=== PATIENT | female | born 1970 | race Caucasian/White ===

== ENCOUNTER → 2022-04-03 | Outpatient (CLI) | payer BC, SELFPAY ==
--- NOTE | 2022-04-03 13:04 | US_ITS ---
STUDY: ULTRASOUND OF THE FEMALE PELVIS - COMPLETE REASON FOR EXAM: Female, 51 years old. Encounter for excessive bleeding LMP: 03/17/2022. TECHNIQUE: Transabdominal and Transvaginal TECHNICAL QUALITY: Adequate. COMPARISON: None. FINDINGS: The uterus is anteverted and is in a midline position. The uterus measures 11.2 cm x 7.3 cm x 5.4 cm. There is a Nabothian cyst of the cervix. The endometrium is thickened and measures 15.3 mm in thickness, and is hyperechoic. There is no demonstrated endometrial mass. There is no demonstrated myometrial mass. I.U.D. - The patient does not have an I.U.D. The right ovary is visualized. The right ovary measures 2.9 cm x 3.2 cm x 2.3 cm. There is no right ovarian cyst or ovarian mass. There is no visualized right adnexal mass or complex lesion. There is normal arterial and normal venous vascularity. The left ovary is visualized. The left ovary measures 3.8 cm x 4 cm x 4.6 cm. There is a 3.1 cm x 2.6 x centimeters 3.1 cm left ovarian cyst. There is no visualized left adnexal mass or complex lesion. There is normal arterial and normal venous vascularity. There is no fluid in the cul-de-sac. The pre void volume of the bladder was 219 ml. Polycystic ovary disease: No. US/Pelvic (Non ) IMPRESSION: Thickened endometrium measuring 15.3 mm. There is a 3.17 x 2.6 x 3.1 cm left ovarian cyst. Electronically Signed: Manuel Villegas MD at 15:04 EST ,
== END | disposition home or self-care (01) ==
LOC: US 13:03
PROVIDERS: PCP Internal Medicine; Referring Provider Registered Nurse; Visit Provider Registered Nurse
DX: N93.9 Abnormal uterine and vaginal bleeding, unspecified (principal)
CPT/HCPCS: 76830; 76856

== ENCOUNTER → 2022-04-24 | Outpatient (CLI) | payer BC, SELFPAY ==
--- NOTE | 2022-04-24 15:30 | EMB_PTH ---
PATIENT: NICKI LAGUNA LOC: [facility] U#:[id number] AGE/SX: 51/F ROOM: RE04/24/[address]: Dr. Lili Rodríguez DO : 1970 BED: DIS: 04/24/2022 SPEC #: [id number] RECD: 04/24/22 16:06 STATUS: QUYEN RUBYIdalia #: [id number] RYAN: 04/24/22 15:[address]: Lili Rodríguez DEPT: SURGICAL PATHOLOGY RECD BY: Haily Hutchinson ENTERED: 04/25/22 07:39 SP TYPE: ENDOM BX/C ALFONSO DR: Adilene Hudson MD Tissues: Endometrium, NOS Procedures: Surgery Specimen Level IV HEADER OPERATION: Endometrial biopsy PRE-OP DIAGNOSIS: Menorrhagia TISSUE SUBMITTED: Endometrial lining MICROSCOPIC DIAGNOSIS Endometrial biopsy: Proliferative endometrium. REBECCA:mando 04/28/2022 MICROSCOPIC DESCRIPTION Slides are reviewed. GROSS DESCRIPTION Received is one container labeled with the patient's name and not further designated. The specimen consists of multiple irregular fragments of telles-pink soft tissue that in aggregate measure 2.5 x 2.0 x 0.2 cm. The specimen is totally submitted in one cassette. / REBECCA:mando 04/25/2022 TC:4 CPT: 30975
== END | disposition home or self-care (01) ==
LOC: LABSPEC 16:17
PROVIDERS: PCP Internal Medicine; Referring Provider Obstetrics & Gynecology; Visit Provider Obstetrics & Gynecology
DX: N92.0 Excessive and frequent menstruation with regular cycle (principal)
CPT/HCPCS: 88305

== ENCOUNTER 2022-07-08 05:28 | Day surgery (SDC) | payer BC, SELFPAY ==
[2022-07-08] VITALS (11 sets, daily range): BP systolic 118–135; BP diastolic 64–83; PULSE 65–84; RESP 14–18; TEMP 36.7–37.7; O2SAT 95–100; BMI 26.4
--- NOTE | 2022-07-08 | HYST_PTH ---
PATIENT: NICKI LAGUNA LOC: [facility] [place] U#:[id number] AGE/SX: 51/F ROOM: RE07/08/[address]: Dr. Lili Rodríguez DO : 1970 BED: DIS: 07/08/2022 SPEC #: [id number] RECD: 07/08/22 11:58 STATUS: QUYEN DIAZ #: [id number] RYAN: 07/08/22 00:[address]: Lili Rodríguez DEPT: SURGICAL PATHOLOGY RECD BY: Ramon Brewster ENTERED: 07/08/22 11:58 SP TYPE: HYSTERECT OTHR DR: Adilene Hudson MD Tissues: Uterus, NOS Procedures: Surgery Specimen Level V HEADER OPERATION: ERAS, lap robotic hysterectomy PRE-OP DIAGNOSIS: Menorrhagia TISSUE SUBMITTED: Uterus and fallopian tubes MICROSCOPIC DIAGNOSIS Uterus, hysterectomy: Cervix ? mild chronic inflammation. Endocervical polyp ? benign endocervical polyp with squamous metaplasia, focal ulceration and nabothian cysts, inflamed. Endometrium ? transition endometrium. Myometrium ? adenomyosis. Right and left fallopian tubes ? benign paratubal cysts. AM:mando 07/09/2022 MICROSCOPIC DESCRIPTION Slides are reviewed. GROSS DESCRIPTION Received in fixative is one container labeled with the patient's name and designated uterus. The specimen consists of a uterus with attached cervix measuring 11.5 x 9.0 x 6.0 cm and weighing 297 gm. The ectocervix appears to contain a polyp in the orifice. Also present free in the container are two fallopian tubes with fimbrial ends with average lengths of 5.0 cm and average diameters of 1.0 cm. The endocervical canal measures 3.6 cm in length and contains a glistening, pink polyp measuring 3.0 x 2.0 x 0.8 cm. The triangular endometrial cavity measures 5.0 x 4.5 cm. The velvety, reddish-telles endometrium measures up to 0.3 cm in thickness. The myometrium measures 2.5 cm in average thickness and is free of mass lesions. Compliance Clerk sections are submitted as follows: 1 - anterior cervix, 2 - posterior cervix, 4 & 5 - anterior endometrium/myometrial, 6 & 7 - posterior endometrium/myometrial, 8 - one fallopian tube, 9 - the other fallopian tube. / AM:mando 07/09/2022 TC:5 CPT: 83273
[2022-07-08] MEDS: Lactated Ringers 1,000 ML 40 ML IV ×2 (06:18→08:21)
[2022-07-08] MEDS: Celecoxib 200 MG Capsule 400 MG PO (06:25)
[2022-07-08] MEDS: Phenazopyridine 95 MG Tablet 190 MG PO (06:25)
[2022-07-08] MEDS: Acetaminophen 500 MG Tablet 1000 MG PO (06:25)
[2022-07-08] MEDS: Gabapentin 600 MG Tablet PO (06:25)
[2022-07-08] MEDS: dexAMETHasone 4 MG/ML Vial 8 MG IV (06:26)
[2022-07-08] MEDS: Magnesium 1 GM over 15 mins IV (06:29)
[2022-07-08 06:31] LABS: Internal QC Validated? YES +Cl - CLEAR BKGD; Pregnancy, Urine Negative Negative
[2022-07-08 06:40] LABS: Bedside Glucose 207 mg/dL (74-106)
[2022-07-08] MEDS: Insulin Lispro 100 UNIT/ML INSULN.PEN SC (07:06)
--- NOTE | 2022-07-08 07:25 | PCM.HP.BLA ---
History and Physical Date of Admission: 07/08/22 Vital Signs ? 06/19/2307:30 06/19/2307:30 Height 5 ft 6 in 5 ft 6 in Weight: 165 lb ? BMI 26.6 ? BP 143/87 H ? Intake Visit Reasons:?surgery consult Network Project Manager Required: No Is patient in pain?: No Allergies No Known Allergies Allergy (Verified 06/18/22 08:30) Medications cholecalciferol (vitamin D3) 50 mcg (2,000 unit) capsule 50 mcg PO DAILY 03/17/22 [History Confirmed 06/18/22] ergocalciferol (vitamin D2) 50,000 unit tablet 50,000 unit PO 03/17/22 [History Confirmed 06/18/22] Post menopausal: No Patient : No : No PFSH Family History? Father Diabetes Thyroid disorderMother HypertensionDaughter Thyroid cancerGrandmother Lung cancerGrandmother DiabetesGrandfather Esophageal cancer Diabetes Social History? adopted:? No household members:? spouse and children current occupational status:? employed current occupation:? [employer] current occupational exposures/hazards:? No pets and animals:? Yes (goats) pets and animals: cat(s) and fish sexually active:? Yes Smoking Status:? Never smoker second hand exposure:? No alcohol intake:? current alcohol intake frequency: holidays/special occasions only substance use type:? does not use caffeine:? Yes Type: carbonated beverages what type of physical activity do you participate in:? none seatbelt use:? always do you feel safe at home:? Yes additional social history:? spouse, Cash [facility] surgery consult Details: VIKI LAGUNA is a 51 year old , who presents for discussion about heavy menses. She states that her menses started getting heavy a year or more ago and then dec through January she had a period every day. Ultrasound was performed showing an 11-12 cm uterus and normal ovaries. The lining was found to be 16mm.? There are some signs of adenomyosis as well within the endometrium. Her EMB was benign. She is not interested in hormonal therapy due to fear of side effects. She wants to keep her ovaries in tact. History Past Pregnancies Del. Date Name GA/Weeks Outcome Route Bth Weight Infant Gen Labor Lgth Anesthesia Del Locatn Provider FOB Unknown Sybil ? Unknown Jaziel ? ROS Const ROS Unobtainable: All systems reviewed & are unremarkable except as noted in H Resp Resp: Reports system reviewed and no additional complaints, except as documented; Denies cough GI GI: Reports as per HPI Psych Psych: Reports system reviewed and no additional complaints, except as documented Exam Const General: cooperative, healthy appearing, comfortable and no acute distress Resp Effort & Inspection: normal respiratory effort Skin General: no rashes or lesions noted Psych Appearance: grossly normal Speech and Movement: speech and movement normal Coding Level of Care Code Off vis,est,level 4 Diagnoses Menorrhagia? N92.0 Hypertension? 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 I have discussed with the patient the risks, benefits, and alternatives of the procedure which include but are not limited to risks of anesthesia, bleeding, infection, possible damage to bowel, bladder, or surrounding vasculature which could lead to additional surgery to evaluate any complications.? Patient agrees to procedure and wishes to proceed.? ACOG/uptodate references given for additional information regarding procedure.? plan for total robotic hyst, bs and cysto
[2022-07-08] MEDS: Cefazolin 2 GM in 0.9% Normal Saline 100 ML IV (07:30)
[2022-07-08] MEDS: Ondansetron 4 MG/2 ML Vial IV (10:04)
[2022-07-08] MEDS: Bupivacaine 0.25% 30 ML Vial (10:14)
--- NOTE | 2022-07-08 10:22 | OP.PCM_ITS ---
Problems Associated Problem List Diagnoses (1) Menorrhagia: (2) Endometriosis determined by laparoscopy: Operative Report Date of Procedure: 07/08/22 Preoperative diagnosis: Pelvic pain and menorrhagia, enlarged uterus Postoperative diagnosis: Pelvic pain menorrhagia enlarged uterus and moderate to severe endometriosis Procedure: Total robotic hysterectomy, bilateral salpingectomy,cystoscopy, and use of sigmoidoscope Surgeon: Dr. Lili Rodríguez DO Intraoperative consultation with Dr. Sam Bell MD Aircraft Pneudraulics Repairer: DENILSON Tejada Anesthesia: General endotracheal intubation Estimated blood loss: 100cc Urine output:300cc Drains: None Implanted material: None Complications: None Findings: 14 cm size uterus, normal-appearing fallopian tubes however were adherent to the posterior uterus. The ovaries were also adherent to the sigmoid colon and the posterior uterus. On further exploration of the abdominal cavity the uterus was found to be adherent to the descending colon. Cystoscopy showed no evidence of leaking at approximately 250 cc of normal saline, positive ureteral orifices and jet flow are seen and no suture material was appreciated in the bladder. A sigmoidoscope was inserted into the rectum and air was pushed through the rectum and colon and no intra-abdominal air bubbles were noted. Specimens removed: Uterus and cervix, Bilateral tubes Reason for surgery: This is a 51-year-old G 2, P 2 who presented to my office with history of pelvic pain and heavy periods. She was found to have an enlarged uterus on ultrasound and declined conservative therapy. The planned procedure is for a robotic hysterectomy the risks benefits and alternatives were discussed with the patient the patient had a clear understanding of the procedure and a consent form was signed. Procedure: The patient was placed in the dorsal low lithotomy position and prepped and draped in the normal sterile fashion both abdominally and in the perineum. Her legs were placed in stirrups a Meek catheter was inserted into the urethra without difficulty. A weighted speculum was placed in the vagina and a single- tooth tenaculum was used to grasp the anterior lip of the cervix. A, Advincula uterine manipulator was inserted through the cervix without complication. It was then tied into place at the 2 and 10:00 locations on the cervix. Gloves were changed and attention was turned towards the abdomen. Approximately 23 cm above the pubic symphysis in the midline, and after Marcaine injection, a 8 mm incision was made. An 8 mm trocar was inserted through the laparoscope, then inserted into the abdomen under direct visualization using the laparoscope. Good abdominal placement was noted and no complications were appreciated. An air seal device was utilized to create pneumoperitoneum. At 12 cm lateral to the midline on the left and right sides 8 mm accessory ports were placed. Next a left upper quadrant 8 mm assistant financial accountant port site was placed. The patient was placed in steep Trendelenburg position. The robot was docked. The hysterectomy was initiated first by carefully dissecting off fine adhesions on the posterior uterus that were adherent to the descending colon this was done with Brusett dissection and very gentle blunt dissection until general surgery was called to the room for further dissection. Dr. Bell entered and carefully pushed more adhesions down bluntly without cutting or cauterizing any tissue. The fallopian tubes and round ligaments on each side using the vessel sealer device. The broad ligament was then and taken down using the vessel sealer device. Next the bladder flap was taken down without complication. This was done using monopolar cautery to the level of the cervical vaginal junction. After the bladder flap was created, uterine vessels were then isolated and cauterized using the vessel sealer device and EndoShears. At this point the uterine vessels were taken down further starting from the ascending branch, dissecting along the edges of the cervix to the level of the cervical vaginal junction with hemostasis appreciated. The cervical vaginal junction was then using monopolar cautery in a circumferential pattern across the superior aspect of the cervix. The specimen was delivered through the vagina and sent to pathology. The remaining vaginal cuff was then closed using OV lock suture. This was performed in a running technique. Excellent hemostasis was obtained and good closure was noted. Irrigation was then performed. All operative sites were noted to be hemostatic. A cystoscopy was performed with a 70 degree cystoscope through the urethra into the bladder without complication. The bladder was instilled with approximately 250 cc of normal saline. Intraoperative images were made. Ureteral orifices and jets were identified. No suture material was appreciated in the bladder. The bladder was then drained and cystoscope was removed. A rigid sigmoidoscope was inserted into the rectum and air was pumped into the rectum and descending colon. This was visible on laparoscopy as my assistant financial accountant push the air in. Fluid was used to fill the cul-de-sac first and the descending colon was noted to be expanding without air bubbles noted in the fluid. No bowel lacerations were suspected. Some raw edges of tissue were noted in the cul-de-sac from the dissection and were only gently oozing. Fibrillar was applied to this area and close observation was made for several minutes. No further bleeding or oozing was appreciated All operative sites were noted to be hemostatic. The trochars were removed under direct visualization without complication and pneumoperitoneum was reduced. At this point the skin was then closed using 4-0 Monocryl subcuticular stitch and sealed with surgical glue. The patient tolerated the procedure well sponge lap and needle counts were correct x2 the patient was taken to the recovery room in stable condition. Multi Select Codes Urinary/Genital Urinary/Genital CPT Codes: 12919 Cystoscopy, 52705 TLH+BS/O >250gr uterus and Other Procedure See Report
--- NOTE | 2022-07-08 10:36 | DCINST_ITS ---
Discharge Instructions Diet Discharge Diet: No restrictions Activity May resume sexual activity in: 6 weeks Weight Bearing Status: Full weight bearing Dressing / Incision Call your doctor if your incision/area has: Continuous Slow Oozing, Sudden Increased Bleeding, Increased Pain/ Swelling, Increased Redness and Foul Smelling Discharge Call your doctor if you observe: Fever of 101 or Higher, Using more than 1 pad per hour, Shortness of breath, Chest pain and Uncontrolled pain Suture Line Care: Avoid Pulling/Pushing and Avoid Pinching/Bending Remove Dressing in: 1 week (if present) Cleanse incision/area with: Soap & Water and Keep Dressing Clean & Dry Follow Up Care Please Follow Up With: Lili Rodríguez DO When: Call to make an appointment with your doctor for a postop visit in 2 and 6 weeks Test Results: Test results from this visit will be discussed in further detail at your follow- up appointment, if applicable. Discharge Plan Admission Primary Reason for Your Visit: hysterectomy Attending Provider: Lili Rodríguez Primary Care Provider: Adilene Hudson Discharge Orders/Prescriptions Prescriptions: New ondansetron HCl 4 mg tablet 4 mg PO Q6H PRN (Reason: nausea and vomiting) Qty: 20 0RF oxycodone-acetaminophen [Percocet] 5-325 mg tablet 1 tab PO Q4H PRN (Reason: pain) 7 Days Qty: 30 0RF Rx Instructions: 1-2 tabs q 4 hrs as needed for pain naproxen 500 mg tablet 500 mg PO BID PRN (Reason: pain) Qty: 30 0RF Held cholecalciferol (vitamin D3) 50 mcg (2,000 unit) capsule 50 mcg PO DAILY Hold Instructions: Resume on 07/22/22. Rx Instructions: START AFTER D2 IS FINISHED ergocalciferol (vitamin D2) 50,000 unit tablet 50,000 unit PO QWEEK Hold Instructions: Resume on 07/22/22. Rx Instructions: TAKES ON THURSDAY Other Ambulatory Orders: 12 Lead EKG (Routine) Timeframe: [id number] Location: None Selected Ordered By: Dr. Gian Crowley Referrals / Follow Up: Adilene Hudson MD [Primary Care Provider] - Disposition Disposition (needs filled in before D/C Order can be placed): Home, Self Care
[2022-07-08] MEDS: Lactated Ringers 1,000 ML 100 ML IV ×2 (11:31→16:11)
[2022-07-08 12:55] LABS: Bedside Glucose 125 mg/dL (74-106)
== END 2022-07-08 17:13 | disposition home or self-care (01) ==
LOC: SDC 05:29 → AC 05:29
PROVIDERS: PCP Internal Medicine; Referring Provider Obstetrics & Gynecology; Visit Provider Obstetrics & Gynecology
PROC: 0UT90ZZ Resection of Uterus, Open Approach (ICD-10-PCS; CPT 58573; principal; 2022-07-08 07:10)
DX: N92.0 Excessive and frequent menstruation with regular cycle (principal); N85.2 Hypertrophy of uterus; I10 Essential (primary) hypertension
CPT/HCPCS: 58573; 52000; 00840; 81025; 82962; 86850; 86900; 86901; 88307; 93005; J7120; J2405; J3475

== ENCOUNTER → 2022-12-09 | Outpatient (CLI) | payer BC, SELFPAY ==
--- NOTE | 2022-12-09 10:36 | BI_ITS ---
MAMMOGRAPHY - BILATERAL SCREENING REASON FOR EXAM: Female, 52 years old. Routine annual screening examination. PERTINENT HISTORY: Non-contributory. TECHNIQUE: Digital bilateral breast shaq (3D mammographic acquisition) in the CC and MLO projections. 2-D mediolateral oblique (MLO) and craniocaudad (CC) views of both breasts were obtained. CAD: Full Field Digital Mammography with Computer Added Detection was performed. COMPARISON: Comparison is made with prior outside examination of April 24, 2020. FINDINGS: Breast Composition: There are scattered areas of fibroglandular density. There are no dominant masses or suspicious calcifications. No other significant abnormalities are identified. There has been no significant change since the prior study. BI/SCRN MAMM (CAD)W/SHAQ BILAT IMPRESSION: Stable bilateral screening mammogram. Yearly follow-up mammogram recommended. (A) ASSESSMENT CATEGORY: BIRADS Category 1: Negative. A letter regarding these results will be sent to the patient by the facility within 30 days. Approximately 10% of breast cancers are not detected by mammography. A normal mammogram should not delay biopsy of a clinically suspicious abnormality. [id number] Electronically Signed: Manuel Villegas MD at 15:21 EDT ,
== END | disposition home or self-care (01) ==
LOC: OPBI 10:35
PROVIDERS: PCP Internal Medicine; Referring Provider Obstetrics & Gynecology; Visit Provider Obstetrics & Gynecology
DX: Z12.31 Encounter for screening mammogram for malignant neoplasm of breast (principal)
CPT/HCPCS: 77063; 77067